=== PATIENT | female | born 1950 | race Asian ===

== ENCOUNTER → 2016-06-12 | Outpatient (CLI) | payer OTHER | END | disposition home or self-care (01) | LOC: CFH 06:55 | PROVIDERS: ATTEND Family Medicine | DX: R31.1 Benign essential microscopic hematuria (principal) | CPT/HCPCS: 82565 ==

== ENCOUNTER → 2016-06-19 | Outpatient (CLI) | payer OTHER | END | disposition home or self-care (01) | LOC: CFH 08:30 | PROVIDERS: ATTEND Family Medicine | DX: K76.89 Other specified diseases of liver (principal) | CPT/HCPCS: 74176 ==

== ENCOUNTER → 2018-01-30 | Outpatient (CLI) | payer MEDICARE | END | disposition home or self-care (01) | LOC: CFH 10:27 | PROVIDERS: ATTEND Family Medicine | DX: M81.0 Age-related osteoporosis without current pathological fracture (principal); Z12.31 Encounter for screening mammogram for malignant neoplasm of breast; N95.9 Unspecified menopausal and perimenopausal disorder; Z83.3 Family history of diabetes mellitus | CPT/HCPCS: 77080; 77067 ==

== ENCOUNTER 2019-01-12 21:30 | Emergency (ER) | payer MEDICARE ==
[~2019-01-12] VITALS: Ht 152.4 cm; Wt 50.1 kg
--- NOTE | 2019-01-12 21:46 | NUR ---
PT PRESENTED WITH C/O BLURRED VISION, SOB AND DIZZY AFTER EXERCISING 1845 TODAY. MONITORS APPLIED, SIDERAILS UP X2, CALL LIGHT WITHIN REACH. PA AT BEDSIDE FOR EVAL
[2019-01-12] MEDS ORDERED: ACETAMINOPHEN 500 MG TABLET PO ONE (22:00)
--- NOTE | 2019-01-12 22:06 | NUR ---
pt up to rr with standby assist, tolerated transfer without difficulty
[2019-01-12] MEDS ORDERED: ACETAMINOPHEN 500 MG TABLET ONE (22:07)
[2019-01-12 22:11] LABS: BASOPHILS # (AUTO) 0.06 x10^3/uL (0-0.1); BASOPHILS % (AUTO) 1 % (0-1); EOSINOPHILS # (AUTO) 0.23 x10^3/uL (0-0.4); EOSINOPHILS % (AUTO) 4 % (1-7); LYMPHOCYTES # (AUTO) 2.05 x10^3/uL (1-3.4); LYMPHOCYTES % (AUTO) 33 % (22-44); MD NO; MEAN CORPUSCULAR HEMOGLOBIN 32.5 pg (27.0-34.8); MEAN CORPUSCULAR HGB CONC 33.9 g/dL (32.4-35.8); MEAN CORPUSCULAR VOLUME 96.1 fL (80-100); MEAN PLATELET VOLUME 7.5 fL (7.4-10.4); MONOCYTES # (AUTO) 0.62 x10^3/uL (0.2-0.8); MONOCYTES % (AUTO) 10 % (2-9); NEUTROPHILS # (AUTO) 3.21 x10^3/uL (1.8-6.8); NEUTROPHILS % (AUTO) 52 % (42-75); PLATELET COUNT 286 x10^3/uL (130-400); RED BLOOD COUNT 4.31 x10^6/uL (3.82-5.3); RED CELL DISTRIBUTION WIDTH 13.5 % (9.6-15.2)
--- NOTE | 2019-01-12 22:11 | NUR ---
pt medicated per mar
--- NOTE | 2019-01-12 22:15 | NUR ---
URINE SAMPLE SENT. PT TO CT
[2019-01-12 22:20] LABS: ANION GAP 7 mmol/L (5-15); CALCIUM 9.5 mg/dL (8.5-10.1); CHLORIDE 107 mmol/L (98-107); CREATININE 1.07 mg/dL (0.55-1.02)
[2019-01-12 22:21] LABS: ALANINE AMINOTRANSFERASE 29 U/L (12-78)
[2019-01-12 22:25] LABS: ALKALINE PHOSPHATASE 69 U/L (45-117); BILIRUBIN,TOTAL 0.3 mg/dL (0.2-1.0); TOTAL PROTEIN 8.2 g/dL (6.4-8.2); TROPONIN I < 0.015 ng/mL (0.000-0.045)
[2019-01-12 22:25] LABS: MICROSCOPIC AUTO
[2019-01-12 22:28] LABS: CULTURE INDICATED? YES
--- NOTE | 2019-01-12 22:53 | NUR ---
PT RESTING ON [address], STATED " MY HEADACHE IS GETTING MUCH BETTER", MONITORS IN PLACE, DENIES NEEDS, CALL LIGHT WITHIN REACH. AWAITING CT RESULT
[2019-01-12 23:55] VITALS: BP 126/65
== END 2019-01-13 00:04 | disposition home or self-care (01) ==
LOC: ED 23:59
DX: R42 Dizziness and giddiness (principal); R55 Syncope and collapse; R06.02 Shortness of breath; R51 Headache
CPT/HCPCS: 36415; 70450; 71045; 80053; 81001; 84484; 85025; 87086; 93005; 99284

== ENCOUNTER → 2019-03-24 | Outpatient (CLI) | payer MEDICARE | END | disposition home or self-care (01) | LOC: CFH 07:55 | PROVIDERS: ATTEND Family Medicine | DX: Z12.31 Encounter for screening mammogram for malignant neoplasm of breast (principal) | CPT/HCPCS: 77063; 77067 ==

== ENCOUNTER 2020-07-31 08:14 | Outpatient (CLI) | payer MEDICARE | END 2020-07-31 23:59 | disposition home or self-care (01) | LOC: CFH 08:14 | PROVIDERS: ATTEND Family Medicine | DX: Z12.31 Encounter for screening mammogram for malignant neoplasm of breast (principal); M81.0 Age-related osteoporosis without current pathological fracture | CPT/HCPCS: 77063; 77067; 77080 ==